=== PATIENT | male | born 1950 | race Caucasian/White ===

== ENCOUNTER 2016-12-09 11:56 | Observation (INO) | payer BC, MEDICARE ==
[2016-12-09 12:46] LABS: #Eosinphils 0.2 thou/uL (0.0-0.7); #Lymphocytes 2.6 thou/uL (1.20-3.40); #Monocytes 1.2 thou/uL (0.11-0.59); #Neutrophils 9.2 thou/uL (1.40-6.50); %Basophils 0.3 % (0.0-1.0); %Eosinophils 1.7 % (0.0-10.0); %Lymphocytes 19.5 % (21.0-51.0); %Monocytes 9.1 % (0.0-10.0); Hematocrit 38.7 % (42.0-52.0); Red Blood Cell (RBC) Count 4.08 mill/uL (4.70-6.10); White Blood Cell (WBC) Count 13.3 thou/uL (4.8-10.8)
[2016-12-09 13:10] LABS: ALT (SGPT) 24 U/L (8-55); AST (SGOT) 16 U/L (5-34); Alkaline Phosphatase 58 U/L (40-150); Anion Gap 13 mmol/L (10-20); BUN (Urea Nitrogen) 24 mg/dL (8.4-25.7); Bilirubin, Total 0.3 mg/dL (0.2-1.2); Calc. Creatinine Clearance 0 mL/min (70-130); Carbon Dioxide 24 mmol/L (23-31); Chloride 107 mmol/L (98-107); Estimated GFR-MDRD 58; Globulin 2.8 g/dL (2.4-3.5); Protein, Total 6.4 g/dL (5.8-8.1)
[2016-12-09 13:13] LABS: Troponin I 0.017 ng/mL (< 0.028)
--- NOTE | 2016-12-09 14:18 | RAD ---
PORTABLE AP VIEW CHEST 12/09/2016 HISTORY: Chest pain. The patient states he woke up at 1000 hours and was unable to see. The patient then be zach experiencing shortness of breath and chest pain. COMPARISON: 05/20/2007 FINDINGS: Cardiac silhouette and pulmonary vasculature are within normal limits. The lungs are clear. There is symmetrical biapical pleural thickening present. Vascular calcifications seen in the thoracic ao rta. no other interval change. IMPRESSION: No acute cardiopulmonary process. POS: GRISEL
--- NOTE | 2016-12-09 15:01 | HP ---
PRIMARY CARE PHYSICIAN: Dr. Michael Frausto. REASON FOR ADMISSION: Syncope and chest pain. HISTORY OF PRESENT ILLNESS: A 66-year-old male with a history of hypertension and dyslipidemia who woke up this morning, at that time he was perfectly fine. He took his all blood pressure medication , which he normally takes in the morning around 8:00. After that, he was taking some neb and when h e woke up around 10:00, at that time, patient was feeling dizzy and he was not able to see anything other than white, he appeared very pale to patient's daughter and when the patient's checked bl ood pressure at home, his blood pressure was 73/38. Patient was about to pass out and patient's wif e called paramedics and paramedics gave him IV fluid and his blood pressure responded and subsequent ly he was brought to the emergency room for evaluation. During this period, the patient was also feeling left-sided chest pressure, heaviness and he was als o feeling heaviness on his both upper extremities, but more on the left side. Patient denies any sh ortness of breath, but he was feeling diaphoretic and he was feeling mild nausea. He denies any fal l, he denies any melena, hematochezia, abdominal pain. He denies any UTI symptoms. He denies any f ever or chills. Patient denies any urinary tract infection symptoms. In the emergency room, this patient had routin e blood test, which was unremarkable. When I saw this patient in the emergency room, he was asympto matic. REVIEW OF SYSTEMS: The following complete review of systems was negative, unless otherwise mentione d in the HPI or below: Constitutional: Weight loss or gain, ability to conduct usual activities. Skin: Rash, itching. Eyes: Double vision, pain. ENT/Mouth: Nose bleeding, neck stiffness, pain, tenderness. Cardiovascular: Palpitations, dyspnea on exertion, orthopnea. Respiratory: Shortness of breath, wheezing, cough, hemoptysis, fever or night sweats. Gastrointestinal: Poor appetite, abdominal pain, heartburn, nausea, vomiting, constipation, or diar jasmin. Genitourinary: Urgency, frequency, dysuria, nocturia. Musculoskeletal: Pain, swelling. Neurologic/Psychiatric: Anxiety, depression. Allergy/Immunologic: Skin rash, bleeding tendency. Please see my HPI for pertinent positives and negatives. All other review of system reviewed and ne gative except as mentioned in the HPI. PAST MEDICAL HISTORY: Hypertension, dyslipidemia, aortic wall sclerosis, diastolic dysfunction, hyp ertensive heart disease, obesity. PAST SURGICAL HISTORY: Back surgery, colonoscopy and polypectomy. PAST PSYCHIATRIC HISTORY: Anxiety. SOCIAL HISTORY: Patient is and lives at home with family. He smokes about 1.5 pack per day for the last 50 years. He drinks alcohol only during nighttime, little amount to help with sleep. He denies any other illicit drug abuse. He is working with [employer]. FAMILY HISTORY: No strong family history of premature coronary artery disease, stroke or cancer. ALLERGIES: No known drug allergies. CURRENT HOME MEDICATIONS: Prinzide 20/25 one tablet p.o. daily, clonidine 0.2 mg as needed for bloo d pressure more than 160, Zocor 40 mg p.o. at bedtime, amlodipine 10 mg p.o. daily, Coreg 25 mg p.o. b.i.d., isosorbide mononitrate 60 mg p.o. daily, Xanax 0.25 mg twice daily p.r.n. EMERGENCY ROOM COURSE: Patient is given IV fluid 1 liter. PHYSICAL EXAMINATION: VITAL SIGNS: On arrival, blood pressure 132/52, pulse 55, respiratory rate 14, temperature 97.8, sa turation 96% on room air, weight 107.05 kilograms. GENERAL: Patient is currently alert, awake, no obvious acute distress. HEAD: Normocephalic, atraumatic. EYES: Pupils round, reactive to light. Extraocular muscles intact. ENT: Oropharynx within normal limits. Moist mucous membranes. No oral lesions. No pharyngeal emi thema, no exudate. NECK: Supple. Range of motion is normal. No meningeal signs of irritation. LUNGS: Clear to auscultation without any rhonchi or rales. CARDIAC: S1, S2 regular, bradycardia, systolic murmur noted at aortic area and the parasternal area . No gallop, no rub. ABDOMEN: Soft, bowel sounds present, nontender, nondistended. No organomegaly, no mass, no suprapu bic tenderness. BACK: Unremarkable. No CVA tenderness. EXTREMITIES: Upper extremity: Passive movement of all joints are normal. Lower extremity: Trace bilateral lower extremity edema noted. No calf tenderness. Good peripheral pulsation. SKIN: No skin rash. HEMATOLOGIC: No lymphadenopathy. PSYCHIATRIC: Normal affect. NEUROLOGIC: Nonfocal examination. Patient is moving all four limbs, plantar bilateral flexor. PSYCHIATRIC: Normal affect. SIGNIFICANT LABORATORY DATA AND IMAGING: EKG based on my review, sinus bradycardia and LVH with ear ly repolarization changes. Chest x-ray based on my review, no acute cardiopulmonary process. CBC: WBC 13.3, hemoglobin 13.2, platelet 210. BMP: Sodium 140, potassium 3.6, chloride 107, carbon alpa xide 24, anion gap 13, BUN 24, creatinine 1.24, glucose 143, calcium 9.0. LFT: AST 16, ALT 24, alk darrick phosphatase 58, albumin 3.6. CK-MB 1.7, troponin I 0.017. BNP 95.6. ASSESSMENT AND PLAN: 1. Acute chest pain. This patient's chest pain started when the patient's blood pressure was low. Currently, his chest pain is resolved. He does have a negative troponin. His BNP is normal and hi s EKG is showing LVH with repolarization changes. At the same time, this patient's blood pressure w as low and that is why I will order D-dimer and if D-dimer is abnormal, then we will perform CT katelynn o to rule out PE, though possibility of PE is less likely in this particular patient. Meanwhile, we will continue with aspirin 325 mg p.o. daily. We will check lipid profile for risk stratification and we will continue nitropatch q.8 hourly and watch for any hypertension. Healthy lifestyle measur es discussed with the patient. 2. Near syncope/dizziness and hypotension. As mentioned above, we will check D-dimer and if D-dime r is abnormal, then we will do CT angio chest to rule out PE. Most likely, the patient's low blood pressure is explained by taking all blood pressure medication at a time, this patient is advised to space apart all his blood pressure medication at different time. We will check orthostatic vitals w hile in hospital, we will monitor on telemetry floor as this patient also had aortic wall sclerosis and systolic murmur. We will obtain echocardiography to rule out any worsening aortic stenosis. 3. Cardiac murmur, likely due to aortic wall sclerosis underlying valvular heart disease needs to b e excluded and that is why, we will obtain echocardiography. He had an echocardiography in 2014 and that is why he will need another echocardiography for followup. 4. Hypertension. At this point, we will monitor the patient's hemodynamics very closely and if nee ded, we will start the patient on blood pressure medication, Prinzide daily. We will hold on Coreg and Catapres, because we are going to do stress test tomorrow for chest pain workup. 5. Dyslipidemia. Check lipid profile and continue Zocor 40 mg p.o. at bedtime. 6. Anxiety disorder. We will continue Xanax 0.25 mg p.o. twice daily p.r.n. 7. Tobacco abuse disorder. Smoking cessation counseling given. We will offer nicotine patch while in hospital. 8. Deep venous thrombosis prophylaxis not needed, because we are expecting discharge in 24 hours. 9. Gastrointestinal prophylaxis. Pepcid 20 mg p.o. b.i.d. 10. Code status: The patient is FULL CODE. The patient's is surrogate decision maker. Disposition and plan based on above-mentioned investigation results, likely 24 hours.
[2016-12-09 15:13] LABS: Bilirubin Negative (Negative); Blood, Urine Small (Negative); Glucose, Urine (Dipstick) Negative (Negative); Ketone, Urine Negative (Negative); Nitrite Negative (Negative); Protein, Urine (Dipstick) Negative (Neg-Trace); Urobilinogen 0.2 mg/dL (0.2-1.0)
[2016-12-09 15:33] LABS: Bacteria/HPF None Seen HPF (None Seen); RBC/HPF 0-3 HPF (0-3); Squamous Epithelial 0-3 HPF (0-3); WBC/HPF 0-3 HPF (0-3)
[2016-12-09 15:34] LABS: Hyaline Casts/LPF NONE SEEN LPF (0-3 Hyaline); Sperm/HPF Rare HPF (None Seen)
[2016-12-09] MEDS ORDERED: HYDROcodone/Acetaminophen 5/325 mg Tablet PO PRN (20:26)
[2016-12-09] MEDS ORDERED: Artificial Tears 18 DROP/0.9 ML EA EYE PRN (20:26)
[2016-12-09] MEDS ORDERED: Eucerin (Mineral Oil/Petrolatum,White) 30 gm Jar TOP PRN (20:26)
[2016-12-09] MEDS ORDERED: Loratadine 10 MG TAB PO PRN (20:26)
[2016-12-09] MEDS ORDERED: Ondansetron HCl/PF 4 MG/2 ML Vial IVP PRN (20:26)
[2016-12-09] MEDS ORDERED: Zolpidem Tartrate 5 MG TAB PO PRN (20:26)
[2016-12-09] MEDS ORDERED: ALPRAZolam 0.25 MG TAB PO PRN (20:26)
[2016-12-09] MEDS ORDERED: Mag-Al 1200 mg/1200 mg/30 ML UDCUP PO PRN (20:26)
[2016-12-09] MEDS ORDERED: Diabetic Tussin 200 MG/10 ML UDCUP PO PRN (20:26)
[2016-12-09] MEDS ORDERED: Sodium Chloride 0.65% Nasal 44 ML BOT EA NARE PRN (20:26)
[2016-12-09] MEDS ORDERED: Senokot 8.6 MG TAB PO PRN (20:26)
[2016-12-09] MEDS ORDERED: Milk Of Magnesia 30 ML UDCUP PO PRN (20:26)
[2016-12-09] MEDS ORDERED: Loperamide HCl 2 MG CAP PO PRN (20:26)
[2016-12-09] MEDS ORDERED: Ondansetron ODT 4 MG TAB PO PRN (20:26)
[2016-12-09] MEDS ORDERED: Acetaminophen 325 MG TAB PO PRN (20:26)
[2016-12-09] MEDS ORDERED: Nitroglycerin 0.4 MG TAB (25 Tab Bottle) SL PRN (20:26)
[2016-12-09] MEDS ORDERED: Nicotine 21 MG PATCH TD SCH (21:00)
[2016-12-09] MEDS ORDERED: Simvastatin 40 MG TAB PO SCH (21:00)
[2016-12-09 21:28] LABS: Troponin I 0.014 ng/mL (< 0.028)
[2016-12-09] MEDS: Nitroglycerin 2% Ointment 1 INCH/1 GM Packet TOP SCH (21:42)
[2016-12-09] MEDS: Famotidine 20 MG TAB PO SCH (21:43)
[2016-12-09 23:23] VITALS: BMI 31.8
[2016-12-10] MEDS: Nitroglycerin 2% Ointment 1 INCH/1 GM Packet TOP SCH ×2 (02:07→15:27)
[2016-12-10 05:03] LABS: #Eosinphils 0.2 thou/uL (0.0-0.7); #Lymphocytes 3.2 thou/uL (1.20-3.40); #Monocytes 1.2 thou/uL (0.11-0.59); #Neutrophils 9.2 thou/uL (1.40-6.50); %Basophils 0.2 % (0.0-1.0); %Eosinophils 1.2 % (0.0-10.0); %Lymphocytes 22.8 % (21.0-51.0); Hematocrit 39.3 % (42.0-52.0); Mean Platelet Volume 7.6 fL (7.4-10.4); Red Blood Cell (RBC) Count 4.16 mill/uL (4.70-6.10); White Blood Cell (WBC) Count 13.8 thou/uL (4.8-10.8)
[2016-12-10] MEDS ORDERED: Aspirin 325 MG TAB PO SCH (09:00)
[2016-12-10] MEDS ORDERED: Lisinopril/Hydrochlorothiazide 20/25 mg Tablet PO SCH (09:00)
[2016-12-10] MEDS: Famotidine 20 MG TAB PO SCH (09:21)
--- NOTE | 2016-12-10 09:58 | PDOC.PN ---
- Subjective Encounter Start Date: 12/10/16 Encounter Start Time: 08:55 Expresses no complaint. No chest pain. - Objective Resuscitation Status: Resuscitation Status FULL:Full Resuscitation Alert, in no distress. Vital Signs & Weight: Vital Signs (12 hours) Temp Pulse Resp BP BP BP BP 12/10/16 08:14 97.2 F L 57 L 16 173/77 H 12/10/16 03:46 54 L 18 117/56 L 12/09/16 22:55 54 L 118/56 L 12/09/16 22:30 58 L 158/70 H 162/73 H BP Pulse Ox 12/10/16 08:14 96 12/10/16 03:46 12/09/16 22:55 12/09/16 22:30 154/70 H Weight Admit Weight 228 lb Weight 228 lb I&O: 12/09/16 12/10/16 12/11/16 06:59 06:59 06:59 Intake Total 120 Output Total 1550 Balance -1430 Result Diagrams: 12/10/16 04:17 12/09/16 12:32 Phys Exam - Physical Examination HEENT: sclera anicteric Neck: no JVD Respiratory: clear to auscultation bilateral Cardiovascular: RRR Gastrointestinal: soft, non-tender, no distention Musculoskeletal: no edema Neurological: moves all 4 limbs Psychiatric: A&O x 3 Dx/Plan (1) Chest pain Code(s): R07.9 - CHEST PAIN, UNSPECIFIED Status: Acute Comment: evaluation in progress. f/u Echo, stress test. (2) HTN (hypertension) Code(s): I10 - ESSENTIAL (PRIMARY) HYPERTENSION Status: Acute Plan: Continue current Med. Comment: Systolic is elevated. (3) HTN (hypertension) Code(s): I10 - ESSENTIAL (PRIMARY) HYPERTENSION Status: Acute (4) Dyslipidemia Code(s): E78.5 - HYPERLIPIDEMIA, UNSPECIFIED Status: Acute Comment: Continue Statin. (5) Near syncope Status: Acute Plan: Chest CTA if stress test negative. Comment: with elevated Ddimer. - Plan -: f/u stress test.. -: CtA is above negative. * .
[2016-12-10] MEDS ORDERED: Fluticasone Propionate Nasal Spray 16 gm Bottle NASAL PRN (11:27)
[2016-12-10 16:24] VITALS: BP 164/76; TEMP 97.8
[2016-12-10] MEDS ORDERED: ISOVUE-370 76%-LOCM 1 ML ONE (16:46)
--- NOTE | 2016-12-10 17:04 | NM ---
MYOCARDIAL PERFUSION CARDIAC STRESS STUDY: Date: 12-10-16 Clinical history: Chest pain. Dose: 29.4 mCi Technetium 99M Cardiolite for stress and 9.4 mCi Technetium 99M for the resting porti on of the exam. Patient was stressed using 0.4 mg of Lexiscan given IV. FINDINGS: Images demonstrate no significant evidence of area of myocardial ischemia or scar. No evidence of re versible defects seen. Ejection fraction measures 50%. No significant evidence of wall motion abnormality seen. IMPRESSION: Normal myocardial perfusion and quantitative gated SPECT study. POS: KATIE
--- NOTE | 2016-12-10 17:48 | CT ---
CONTRAST ENHANCED CTA CHEST: History: Elevated D-Dimer. Contrast enhanced CTA of the chest performed. 2D and 3D reconstruct images performed on an [employer] 3D workstation. FINDINGS: Left main, LED, and circumflex as well as right coronary artery calcification seen. Aortic calcifica tion is also seen. No evidence of pulmonary parenchymal lesions seen. No definite evidence of mediastinal, hilar, or axillary lymphadenopathy is seen. No evidence of filling defects seen in the pulmonary arteries to suggest pulmonary emboli. No eviden ce of pleural or pericardial effusions seen. IMPRESSION: No evidence of pulmonary emboli. POS: KATIE
--- NOTE | 2016-12-10 22:54 | DIS ---
DATE OF ADMISSION: 12/09/2016 DATE OF DISCHARGE: 12/10/2016 PRIMARY DIAGNOSIS: Chest pain. SECONDARY DIAGNOSES: Hypertension, dyslipidemia, near syncope, anxiety disorder. DISCHARGE DIAGNOSES: Atypical chest pain, pulmonary embolism ruled out. COUNTY HISTORIAN: None. PROCEDURES: Angiogram of the chest, stress test, chest x-ray. COURSE OF HOSPITALIZATION: Uncomplicated, responded well to management. Patient is clinically stab le at this time being discharged home. DISCHARGE MEDICATIONS: Please see discharge medication reconciliation sheet. The patient is to fol low up with the primary care physician. For today's physical examination, please refer to patient's medical record progress note section.
--- NOTE | 2016-12-15 13:45 | STRESS ---
Acquisition Time: 2016-12-10 11:41:12 Total Exercise Time: 00:01:00 Test Indications: CHEST PAIN Medications: Protocol: LEXISCAN Max HR: 085 BPM 55% of Pred: 154 BPM Max BP: 164/062 mmHG Max Work Load: 1.0 METS RESTING ECG: NORMAL SINUS RHYTHM AT 62 BPM WITH NONSPECIFIC T WAVE CHANGES SYMPTOMS: NONE NORMAL BP RESPONSE ECTOPY: NONE ECG STRESS: NO SIGNIFICANT CHANGES INTERPRETATION: INDETERMINATE ECG/AWAIT UCLEAR IMAGES FOR DEFINITIVE DIAGNOSIS Confirmed by DAVID BURDICK M.D. ([id number]) on 12/15/2016 1:44:52 PM Referred By: MD Speedy BELL Confirmed By:DAVID BURDICK M.D.
--- NOTE | 2016-12-15 14:55 | EKG ---
Test Reason : CHEST PAIN Blood Pressure : / mmHG Vent. Rate : 053 BPM Atrial Rate : 053 BPM P-R Int : 150 ms QRS Dur : 104 ms QT Int : 492 ms P-R-T Axes : 071 043 132 degrees QTc Int : 461 ms Sinus bradycardia Left ventricular hypertrophy with repolarization abnormality Abnormal ECG Confirmed by MENDOZA RITCHIE D.O. ([id number]), newspaper photo editor TABITHA ROBERTSON ([id number]) on 12/15/2016 2:54:50 PM Referred By: ERMA Confirmed By:MENDOZA RITCHIE D.O.
== END 2016-12-10 17:00 | disposition home or self-care (01) ==
LOC: ERS 11:56 → INTOOBSV 20:13 → 2NO 20:13
PROVIDERS: ADMIT Internal Medicine; ATTEND Internal Medicine
DX: R07.89 Other chest pain (principal); E78.5 Hyperlipidemia, unspecified; R55 Syncope and collapse; F41.9 Anxiety disorder, unspecified; I70.0 Atherosclerosis of aorta; I11.9 Hypertensive heart disease without heart failure; E66.9 Obesity, unspecified; F17.210 Nicotine dependence, cigarettes, uncomplicated; R01.1 Cardiac murmur, unspecified; Z68.31 Body mass index [BMI] 31.0-31.9, adult; Z79.82 Long term (current) use of aspirin; Z79.899 Other long term (current) drug therapy
CPT/HCPCS: 36415; 71010; 71275; 78452; 80053; 80061; 81003; 81015; 82553; 83880; 84484; 85025; 85379; 93005; 93017; 93306; A9500; G0378

== ENCOUNTER 2018-05-31 11:19 | Outpatient (CLI) | payer BC, MEDICARE ==
[2018-05-31 12:58] LABS: ALT (SGPT) 20 U/L (8-55); AST (SGOT) 19 U/L (5-34); Albumin 4.4 g/dL (3.4-4.8); Alkaline Phosphatase 68 U/L (40-150); Anion Gap 12 mmol/L (10-20); BUN (Urea Nitrogen) 17 mg/dL (8.4-25.7); Bilirubin, Direct 0.2 mg/dL (0.1-0.3); Bilirubin, Total 0.4 mg/dL (0.2-1.2); Calc. Creatinine Clearance 0 mL/min (70-130); Carbon Dioxide 27 mmol/L (23-31); Chloride 105 mmol/L (98-107); Estimated GFR-MDRD 63; Globulin 2.9 g/dL (2.4-3.5); Glucose 98 mg/dL (80-115); Potassium 4.3 mmol/L (3.5-5.1); Protein, Total 7.3 g/dL (5.8-8.1); Sodium 140 mmol/L (136-145)
== END 2018-05-31 11:20 | disposition home or self-care (01) ==
LOC: LABBT 11:19
PROVIDERS: ATTEND Internal Medicine Cardiovascular Disease
DX: Z01.818 Encounter for other preprocedural examination (principal); R94.39 Abnormal result of other cardiovascular function study
CPT/HCPCS: 80053; 80076; 93005; 93010

== ENCOUNTER → 2018-06-03 | Day surgery (SDC) | payer BC, MEDICARE ==
[2018-05-31 11:44] VITALS: BMI 30.7
[~2018-06-03] MED LIST: Diazepam 5 MG TAB ONE; Iopamidol 370 76% 100 ML VIAL ONE; Midazolam HCl 2 mg/2 ml Vial ONE
[2018-06-03 07:21] LABS: Cardiac Risk 4.7 (Less than 4.5)
== END ==
LOC: CCL 05:45
PROVIDERS: ATTEND Internal Medicine Cardiovascular Disease
PROC: B2111ZZ Fluoroscopy of Multiple Coronary Arteries using Low Osmolar Contrast (ICD-10-PCS; principal; 2018-06-03)
PROC: 4A023N7 Measurement of Cardiac Sampling and Pressure, Left Heart, Percutaneous Approach (ICD-10-PCS; principal; 2018-06-03)
DX: I25.10 Atherosclerotic heart disease of native coronary artery without angina pectoris (principal); I12.9 Hypertensive chronic kidney disease with stage 1 through stage 4 chronic kidney disease, or unspecified chronic kidney disease; N18.3 Chronic kidney disease, stage 3 (moderate); I35.0 Nonrheumatic aortic (valve) stenosis; E78.5 Hyperlipidemia, unspecified; F41.9 Anxiety disorder, unspecified; F17.210 Nicotine dependence, cigarettes, uncomplicated; G47.00 Insomnia, unspecified; Z79.899 Other long term (current) drug therapy; Z98.890 Other specified postprocedural states
CPT/HCPCS: 36415; 80061; 93458; 99152; C1769; J1644; J2250; Q9967

== ENCOUNTER 2021-01-16 08:28 | Inpatient (IN) | payer BC, MEDICARE, OTHER ==
[2021-01-16] MEDS ORDERED: Fentanyl 100 MCG/2 ML VIAL ONE (08:31)
[2021-01-16] MEDS ORDERED: Rocuronium Bromide 10 MG/ML (10ML VIAL) ONE (08:34)
[2021-01-16] MEDS ORDERED: Norepinephrine 8 MG in Dextrose 5% in Water 242 ML IVPB PRN ×2 (08:45→14:32)
[2021-01-16] MEDS ORDERED: Fentanyl CADD 100 ML IV SCH (08:45)
[2021-01-16] MEDS ORDERED: VANCOMYCIN 2 GRAM/400 ML BAG 2 GM in Premix Bag 1 BAG IVPB SCH (08:45)
[2021-01-16] MEDS ORDERED: Cefepime 2 GM VIAL ONE (08:51)
[2021-01-16 09:08] LABS: Actual Bicarbonate (HCO3a) 22.1 mEq/L (22-28); Analyzer IN Cardio ER; Base Excess (BEa) -7.1 mEq/L (-2.0 to +3.0); Calcium, Ionized (arterial) 1.22 mmol/L (1.12-1.30); Carboxyhemoglobin (COHb) 1.6 gm% (0.0-3.0); Hemoglobin (Hb) 12.9 g/dL (14.0-18.0); O2 Tension (PaO2), arterial 129.9 mmHg (> 70.0); Potassium - ABG Lab 4.16 mmol/L (3.70-5.30)
[2021-01-16 09:14] LABS: CO2 Tension 62.2 mmHg (35.0-45.0); Puncture Site LRA; pH, Arterial 7.17 (7.35-7.45)
[2021-01-16 09:40] LABS: #Eosinphils 0.2 thou/uL (0.0-0.7); #Lymphocytes 1.2 thou/uL (1.20-3.40); #Monocytes 0.9 thou/uL (0.11-0.59); #Neutrophils 10.5 thou/uL (1.40-6.50); %Basophils 0.1 % (0.0-1.0); %Eosinophils 1.5 % (0.0-10.0); %Lymphocytes 9.5 % (21.0-51.0); %Monocytes 6.6 % (0.0-10.0); %Neutrophils 82.2 % (42.0-75.0); Hemoglobin 12.3 g/dL (14.0-18.0); Mean Corpuscular HGB CONC 34.5 g/dL (32.0-36.0); Mean Corpuscular Hemoglobin 32.3 pg (27.0-31.0); Mean Corpuscular Volume 93.8 fL (78.0-98.0); Mean Platelet Volume 7.4 fL (7.4-10.4); Platelet Count 192 thou/uL (130-400); RBC Distribution Width 14.3 % (11.5-14.5); Red Blood Cell (RBC) Count 3.79 mill/uL (4.70-6.10); White Blood Cell (WBC) Count 12.7 thou/uL (4.8-10.8)
[2021-01-16] MEDS ORDERED: Furosemide 40 MG/4 ML VIAL ONE (10:31)
[2021-01-16] MEDS ORDERED: Acetaminophen 325 MG Suppository PR PRN (11:32)
[2021-01-16] MEDS ORDERED: Electrolyte Replacement Protocol 1 EACH IVPB ONE (11:32)
[2021-01-16] MEDS ORDERED: Norepinephrine 8 MG/0.9% NS 250 ML IVPB PRN (11:32)
[2021-01-16] MEDS ORDERED: Ventilator Sedation Protocol 1 EACH FS SCH (11:45)
[2021-01-16] MEDS ORDERED: Heparin 10,000 UNITS/ 10 ML VIAL SLOW IVP SCH (11:45)
[2021-01-16] MEDS ORDERED: Heparin 25,000 units/D5W 500 ML IVPB SCH (11:45)
[2021-01-16] MEDS ORDERED: Metoclopramide HCl 10 MG/2 ML VIAL IVP PRN (11:50)
[2021-01-16 11:54] LABS: Actual Bicarbonate (HCO3a) 21.5 mEq/L (22-28); Base Excess (BEa) -4.7 mEq/L (-2.0 to +3.0); CO2 Tension 44.2 mmHg (35.0-45.0); Calcium, Ionized (arterial) 1.18 mmol/L (1.12-1.30); Hemoglobin (Hb) 13.4 g/dL (14.0-18.0); O2 Tension (PaO2), arterial 205.2 mmHg (> 70.0); Potassium - ABG Lab 4.25 mmol/L (3.70-5.30); Puncture Site RBA; pH, Arterial 7.31 (7.35-7.45)
[2021-01-16] MEDS ORDERED: Propofol 1,000 MG/100 ML VIAL IV ONE (11:54)
[2021-01-16] MEDS ORDERED: Morphine 4 MG/ML VIAL SLOW IVP PRN (11:58)
[2021-01-16] MEDS ORDERED: Fentanyl BOLUS 250 ML IVPB PRN (12:00)
[2021-01-16] MEDS ORDERED: Propofol BOLUS 1,000 MG/100 ML VIAL IV PRN (12:00)
[2021-01-16] MEDS ORDERED: DISCONTINUE PREVIOUS NARCOTIC PAIN MEDICATIONS AND BENZODIAZEPINES FS SCH (12:00)
[2021-01-16] MEDS ORDERED: Aspirin 300 MG Suppository PR SCH (12:15)
[2021-01-16] MEDS ORDERED: Electrolyte Replacement Protocol FS PRN (12:15)
[2021-01-16 12:18] LABS: Hemoglobin 13.4 g/dL (14.0-18.0); Platelet Count 211 thou/uL (130-400)
[2021-01-16 12:35] LABS: Lactic Acid 1.3 mmol/L (0.5-2.2)
[2021-01-16 12:51] LABS: Troponin I 36.864 ng/mL (< 0.028)
[2021-01-16] MEDS ORDERED: FLU VACC QS2021-22(65YR UP)/PF 240 MCG/0.7 ML SYRINGE IM ONE (13:00)
[2021-01-16] MEDS: Sodium Chloride 0.9% 1,000 ML IV SCH (13:09)
[2021-01-16] MEDS: Propofol 1,000 MG/100 ML VIAL IV PRN ×2 (13:33→21:27)
[2021-01-16 16:19] LABS: Troponin I 55.773 ng/mL (< 0.028)
[2021-01-16] MEDS: Lorazepam 2 MG/ML VIAL SLOW IVP PRN (19:02)
[2021-01-16] MEDS ORDERED: Sodium Chloride 0.9% (PF) 10 ML VIAL FS PRN (21:00)
[2021-01-16] MEDS: Famotidine/PF 20 mg/2ml Vial SLOW IVP SCH (21:28)
[2021-01-16] MEDS: Cefepime 1 GM in Sodium Chloride 0.9% 100 ML IVPB SCH (21:41)
[2021-01-16] MEDS: Pantoprazole 40 MG VIAL IVP SCH (21:41)
[2021-01-17] MEDS ORDERED: Fentanyl CADD 100 ML ONE ×2 (00:55→21:42)
[2021-01-17] MEDS: Fentanyl CADD 100 ML IV SCH ×2 (00:59→22:30)
[2021-01-17] MEDS: Propofol 1,000 MG/100 ML VIAL IV PRN ×4 (01:19→18:47)
[2021-01-17 05:01] LABS: ALT (SGPT) 52 U/L (8-55); AST (SGOT) 139 U/L (5-34); Albumin 3.1 g/dL (3.4-4.8); Alkaline Phosphatase 66 U/L (40-110); Anion Gap 14 mmol/L (10-20); BUN (Urea Nitrogen) 23 mg/dL (8.4-25.7); Bilirubin, Total 0.7 mg/dL (0.2-1.2); Calc. Creatinine Clearance 61 mL/min (70-130); Calcium 8.3 mg/dL (7.8-10.44); Carbon Dioxide 24 mmol/L (23-31); Chloride 106 mmol/L (98-107); Globulin 2.4 g/dL (2.4-3.5); Glucose 111 mg/dL (80-115); Potassium 3.6 mmol/L (3.5-5.1); Protein, Total 5.5 g/dL (5.8-8.1); Sodium 140 mmol/L (136-145)
[2021-01-17 05:11] LABS: Band 7 % (5-11); Hemoglobin 12.7 g/dL (14.0-18.0); Lymphocytes 8 % (21-51); MDiff Complete? YES; Mean Corpuscular HGB CONC 35.6 g/dL (32.0-36.0); Mean Corpuscular Hemoglobin 32.6 pg (27.0-31.0); Mean Corpuscular Volume 91.4 fL (78.0-98.0); Monocytes 6 % (0-10); Neutrophil 77 % (42-75); Platelet Count 143 thou/uL (130-400); Platelet Morphology Comment Appears Adequate; RBC Distribution Width 14.4 % (11.5-14.5); RBC Morphology Normal; Reactive Lymphocytes 2 % (0-10); Red Blood Cell (RBC) Count 3.89 mill/uL (4.70-6.10); White Blood Cell (WBC) Count 16.6 thou/uL (4.8-10.8)
[2021-01-17 07:01] LABS: Actual Bicarbonate (HCO3a) 21.9 mEq/L (22-28); Base Excess (BEa) -2.7 mEq/L (-2.0 to +3.0); CO2 Tension 37.8 mmHg (35.0-45.0); Calcium, Ionized (arterial) 1.11 mmol/L (1.12-1.30); Carboxyhemoglobin (COHb) 0.6 gm% (0.0-3.0); Hemoglobin (Hb) 14.9 g/dL (14.0-18.0); O2 Tension (PaO2), arterial 69.5 mmHg (> 70.0); Potassium - ABG Lab 3.37 mmol/L (3.70-5.30); pH, Arterial 7.38 (7.35-7.45)
[2021-01-17] MEDS: Sodium Chloride 0.9% 1,000 ML IV SCH (07:50)
[2021-01-17 08:02] LABS: Puncture Site LRA
[2021-01-17] MEDS: Cefepime 1 GM in Sodium Chloride 0.9% 100 ML IVPB SCH ×2 (08:18→20:02)
[2021-01-17] MEDS: Pantoprazole 40 MG VIAL IVP SCH ×2 (08:20→20:03)
[2021-01-17] MEDS ORDERED: Aspirin 300 MG Suppository PR SCH (09:00)
[2021-01-17 11:04] LABS: Vancomycin, Random 10.1 ug/mL (See Comment)
[2021-01-17] MEDS ORDERED: Vancomycin HCl 1.5 GM in Sodium Chloride 0.9% 250 ML 300 ML IVPB SCH (12:30)
[2021-01-17 13:19] VITALS: BMI 30.6
[2021-01-17] MEDS: VANCOMYCIN 1.25 GM/250 ML BAG 1.25 GM in Premix Bag 1 BAG IVPB SCH (15:01)
[2021-01-17] MEDS: Famotidine/PF 20 mg/2ml Vial SLOW IVP SCH (20:03)
[2021-01-18] MEDS: Propofol 1,000 MG/100 ML VIAL IV PRN ×2 (00:07→04:37)
[2021-01-18] MEDS: VANCOMYCIN 1.25 GM/250 ML BAG 1.25 GM in Premix Bag 1 BAG IVPB SCH (01:53)
[2021-01-18 04:30] LABS: #Lymphocytes 1.9 thou/uL (1.20-3.40); #Monocytes 1.2 thou/uL (0.11-0.59); #Neutrophils 10.7 thou/uL (1.40-6.50); %Basophils 0.1 % (0.0-1.0); %Eosinophils 0.3 % (0.0-10.0); %Lymphocytes 13.9 % (21.0-51.0); %Monocytes 8.5 % (0.0-10.0); %Neutrophils 77.2 % (42.0-75.0); Hemoglobin 10.4 g/dL (14.0-18.0); Hypochromia SLIGHT = 6-15 cells (100X) (0-5/hpf); MDiff Complete? YES; Mean Corpuscular HGB CONC 34.1 g/dL (32.0-36.0); Mean Corpuscular Hemoglobin 31.7 pg (27.0-31.0); Mean Corpuscular Volume 92.9 fL (78.0-98.0); Mean Platelet Volume 8.7 fL (7.4-10.4); Platelet Count 110 thou/uL (130-400); Platelet Morphology Comment Appears Decreased; RBC Distribution Width 14.4 % (11.5-14.5); Red Blood Cell (RBC) Count 3.29 mill/uL (4.70-6.10); White Blood Cell (WBC) Count 13.8 thou/uL (4.8-10.8)
[2021-01-18] MEDS: Sodium Chloride 0.9% 1,000 ML IV SCH (04:34)
[2021-01-18 04:56] LABS: Anion Gap 18 mmol/L (10-20); BUN (Urea Nitrogen) 35 mg/dL (8.4-25.7); Calc. Creatinine Clearance 35 mL/min (70-130); Calcium 7.4 mg/dL (7.8-10.44); Carbon Dioxide 19 mmol/L (23-31); Chloride 105 mmol/L (98-107); Glucose 89 mg/dL (80-115); Potassium 3.7 mmol/L (3.5-5.1); Sodium 138 mmol/L (136-145)
[2021-01-18 07:08] VITALS: BP 112/59
[2021-01-18] MEDS: Lorazepam 2 MG/ML VIAL SLOW IVP PRN (09:39)
[2021-01-18 13:58] VITALS: TEMP 99.4
[2021-01-18] MEDS: Cefepime 1 GM in Sodium Chloride 0.9% 100 ML IVPB SCH (14:02)
[2021-01-19] MEDS ORDERED: VANCOMYCIN 1.25 GM/250 ML BAG 1.25 GM in Premix Bag 1 BAG IVPB SCH (02:00)
== END 2021-01-18 09:53 | disposition hospice, inpatient (51) | DRG 208 ==
LOC: ERS 08:28 → CCU 08:43
PROVIDERS: ADMIT Family Medicine; ATTEND Family Medicine
PROC: 5A1945Z Respiratory Ventilation, 24-96 Consecutive Hours (ICD-10-PCS; principal; 2021-01-16)
PROC: 3E043XZ Introduction of Vasopressor into Central Vein, Percutaneous Approach (ICD-10-PCS; 2021-01-16)
PROC: 0D9670Z Drainage of Stomach with Drainage Device, Via Natural or Artificial Opening (ICD-10-PCS; 2021-01-16)
PROC: 0BH17EZ Insertion of Endotracheal Airway into Trachea, Via Natural or Artificial Opening (ICD-10-PCS; 2021-01-16)
PROC: 0W9930Z Drainage of Right Pleural Cavity with Drainage Device, Percutaneous Approach (ICD-10-PCS; 2021-01-16)
PROC: 06HY33Z Insertion of Infusion Device into Lower Vein, Percutaneous Approach (ICD-10-PCS; 2021-01-16)
DX: S27.2XXA Traumatic hemopneumothorax, initial encounter (principal); I21.4 Non-ST elevation (NSTEMI) myocardial infarction; I49.01 Ventricular fibrillation; R40.2322 Coma scale, best motor response, extension, at arrival to emergency department; R40.2112 Coma scale, eyes open, never, at arrival to emergency department; J96.01 Acute respiratory failure with hypoxia; G93.41 Metabolic encephalopathy; I46.2 Cardiac arrest due to underlying cardiac condition; S22.41XA Multiple fractures of ribs, right side, initial encounter for closed fracture; G93.1 Anoxic brain damage, not elsewhere classified; N17.9 Acute kidney failure, unspecified; R57.9 Shock, unspecified; Z51.5 Encounter for palliative care; Z66 Do not resuscitate; Z20.822 Contact with and (suspected) exposure to COVID-19; I35.0 Nonrheumatic aortic (valve) stenosis; I25.10 Atherosclerotic heart disease of native coronary artery without angina pectoris; E78.00 Pure hypercholesterolemia, unspecified; I10 Essential (primary) hypertension; M54.9 Dorsalgia, unspecified; G89.29 Other chronic pain; F41.9 Anxiety disorder, unspecified; F17.210 Nicotine dependence, cigarettes, uncomplicated; E78.5 Hyperlipidemia, unspecified; G47.00 Insomnia, unspecified; D72.829 Elevated white blood cell count, unspecified; R94.31 Abnormal electrocardiogram [ECG] [EKG]; X58.XXXA Exposure to other specified factors, initial encounter; Z79.899 Other long term (current) drug therapy; Z79.82 Long term (current) use of aspirin; Z78.1 Physical restraint status; Z94.7 Corneal transplant status; Z98.890 Other specified postprocedural states
CPT/HCPCS: 36415; 36600; 70450; 71045; 72125; 80048; 80053; 80202; 82805; 83605; 83880; 84443; 85007; 85025; 85027; 93005; 93010; 93306; 94002; 94003; 94640; C9113; J0692; J1644; J1940; J1956; J2060; J2270; J2704; J3010; J3370; J3490; J7050; J7070; J7620; S0028

== ENCOUNTER 2021-01-18 09:59 | Inpatient (IN) | payer OTHER ==
[2021-01-18] MEDS ORDERED: Lorazepam 2 MG/ML VIAL SLOW IVP PRN (11:08)
[2021-01-18] MEDS ORDERED: diphenhydrAMINE 50 MG/ML VIAL IVP PRN (11:09)
[2021-01-18] MEDS ORDERED: Ondansetron PF 4 MG/2 ML Vial IVP PRN (11:10)
[2021-01-18] MEDS ORDERED: Scopolamine 1.5 mg/72 hour Patch TOP SCH (11:15)
[2021-01-18] MEDS ORDERED: Morphine 4 MG/ML VIAL SLOW IVP SCH ×2 (11:15→12:00)
[2021-01-18] MEDS ORDERED: Lorazepam 2 MG/ML VIAL SLOW IVP SCH ×2 (11:15→13:00)
[2021-01-18] MEDS: Morphine 4 MG/ML VIAL SLOW IVP PRN ×2 (11:33→11:53)
== END 2021-01-18 12:07 | disposition expired | DRG 951 ==
LOC: CCU 09:59
PROVIDERS: ADMIT Family Medicine; ATTEND Family Medicine
DX: Z51.5 Encounter for palliative care (principal); I21.4 Non-ST elevation (NSTEMI) myocardial infarction; G93.41 Metabolic encephalopathy; J96.01 Acute respiratory failure with hypoxia; J94.2 Hemothorax; N17.9 Acute kidney failure, unspecified; G93.1 Anoxic brain damage, not elsewhere classified; R57.9 Shock, unspecified; I46.9 Cardiac arrest, cause unspecified; Z20.822 Contact with and (suspected) exposure to COVID-19; I25.10 Atherosclerotic heart disease of native coronary artery without angina pectoris; F17.210 Nicotine dependence, cigarettes, uncomplicated; I10 Essential (primary) hypertension; E78.5 Hyperlipidemia, unspecified; Z79.899 Other long term (current) drug therapy
CPT/HCPCS: J2060; J2270